=== PATIENT | male | born 2000 | race Two or more races ===

== ENCOUNTER 2023-01-02 20:01 | Emergency (ER) | payer OTHER ==
[~2023-01-02] VITALS: Ht 170.2 cm; Wt 51.7 kg
== END 2023-01-02 21:55 | disposition home or self-care (01) ==
LOC: ER 20:02
DX: J06.9 Acute upper respiratory infection, unspecified (principal); Z20.822 Contact with and (suspected) exposure to COVID-19

== ENCOUNTER 2023-12-18 13:41 | Emergency (ER) | payer OTHER ==
[~2023-12-18] VITALS: Ht 172.7 cm; Wt 53.5 kg
[2023-12-18] MEDS ORDERED: ZYRTEC10 MG PO (14:13)
[2023-12-18 14:16] VITALS: BP 118/82; O2SAT 99
[2023-12-18 16:31] LABS: HEMATOCRIT 43.8 % (39.0-48.0); HEMOGLOBIN 14.9 g/dL (13-16.00); MEAN CELL VOLUME 82.7 fL (80.0-100.00); MEAN CORPUSCULAR HEMOGLOBIN 28.1 pg (27.00-32.0); PLATELET COUNT 176 K/uL (150-450); RED CELL DISTRIBUTION WIDTH 14.1 % (11.5-14.5)
[2023-12-18] MEDS ORDERED: AMOX1TAB5 PO (17:09)
== END 2023-12-18 17:30 | disposition home or self-care (01) ==
LOC: ER 13:42
DX: J06.9 Acute upper respiratory infection, unspecified (principal); Z20.822 Contact with and (suspected) exposure to COVID-19

== ENCOUNTER 2023-12-20 13:00 | Emergency (ER) | payer OTHER ==
[~2023-12-20] VITALS: Ht 172.7 cm; Wt 53.5 kg
[~2023-12-20 13:00] MED LIST: AMOX1TAB5 PO; ZYRTEC10 MG PO
[2023-12-20] MEDS ORDERED: DEXAMETHASONE SODIUM PHOSPHATE 4 MG/ML VIAL IM STA (14:16)
[2023-12-20] MEDS ORDERED: DEXAMETHASONE SODIUM PHOSPHATE 4 MG/ML VIAL ONE (14:28)
== END 2023-12-20 16:17 | disposition home or self-care (01) ==
LOC: ER 13:01
DX: J06.9 Acute upper respiratory infection, unspecified (principal); Z20.822 Contact with and (suspected) exposure to COVID-19

== ENCOUNTER 2024-03-02 19:57 | Emergency (ER) | payer OTHER ==
[~2024-03-02] VITALS: Ht 172.7 cm; Wt 52.6 kg
[2024-03-02] MEDS ORDERED: CEFTRIAXONE SODIUM 1,000 MG VIAL IM STA (21:22)
[2024-03-02] MEDS ORDERED: KETOROLAC TROMETHAMINE 30 MG VIAL IM STA (21:22)
== END 2024-03-02 21:57 | disposition home or self-care (01) ==
LOC: ER 19:59
DX: J06.9 Acute upper respiratory infection, unspecified (principal)

== ENCOUNTER 2024-06-24 18:13 | Emergency (ER) | payer OTHER ==
[~2024-06-24] VITALS: Ht 172.7 cm; Wt 53.5 kg
[2024-06-24] MEDS ORDERED: KETOROLAC TROMETHAMINE 30 MG VIAL IM ONE (20:15)
[2024-06-24] MEDS ORDERED: NEO-POLYMYXIN-H10 ML OTIC (20:20)
== END 2024-06-24 20:28 ==
LOC: ER 18:15
DX: H60.92 Unspecified otitis externa, left ear (principal)

== ENCOUNTER 2024-10-05 02:10 | Emergency (ER) | payer OTHER ==
[~2024-10-05] VITALS: Ht 170.2 cm; Wt 54.0 kg
[~2024-10-05 02:10] MED LIST changes: +NEO-POLYMYXIN-H10 ML OTIC
[2024-10-05] MEDS ORDERED: LACTOBACILLUS ACIDOPHILUS 1 CAP CAP PO STA (03:59)
[2024-10-05 04:02] LABS: BASO % 0.3 % (0.1-1.2); EOS # 0.07 (0.04-0.54); EOS % 1.2 % (0.7-7.0); HEMOGLOBIN 15.1 g/dL (13.7-17.5); LYMPH # 1.69 (1.18-3.74); LYMPH % 28.8 % (19.3-53.1); MEAN CORPUSCULAR HEMOGLOBIN 27.2 pg (25.6-32.2); MONO # 1.04 (0.24-0.82); NEUT # 3.04 (1.56-6.13); PLATELET COUNT 191 K/uL (163-369); RED BLOOD COUNT 5.55 M/uL (4.63-6.08); RED CELL DISTRIBUTION WIDTH 13.1 % (11.6-14.4)
[2024-10-05 04:03] LABS: MONO % 17.7 % (4.7-12.5)
[2024-10-05] MEDS ORDERED: LACTOBACILLUS ACIDOPHILUS 1 CAP CAP PO ONE (04:15)
[2024-10-05 05:08] LABS: COVID-19 AG NEGATIVE (NEGATIVE); INFLUENZA A AG NEGATIVE (NEGATIVE); INFLUENZA B AG NEGATIVE (NEGATIVE)
[2024-10-05] MEDS ORDERED: INTESTINEX680 M1 PO (05:17)
[2024-10-05] MEDS ORDERED: PHENAGIL TABLE1 EACH PO (05:17)
== END 2024-10-05 05:21 ==
LOC: ER 02:26
PROVIDERS: General Practice
DX: B34.9 Viral infection, unspecified (principal); Z20.822 Contact with and (suspected) exposure to COVID-19